=== PATIENT | male | born 2000 | race Caucasian/White ===

== ENCOUNTER 2018-05-27 01:40 | Emergency (ER) | payer MEDICAID, SELFPAY ==
[2018-05-27 01:40] VITALS: BP 111/81; PULSE 98; RESP 20; TEMP 36.7; O2SAT 96; BMI 20.7
[2018-05-27] MEDS: Ondansetron 4 MG/2 ML Vial IV (02:25)
[2018-05-27] MEDS: 0.9% Normal Saline 1,000 ML 1000 ML IV ×2 (02:25→03:20)
[2018-05-27 02:27] LABS: Absolute Lymphocyte Count 1.81 X10^3/ul (0.83-4.51); Absolute Neutrophil Count 2.8 X10^3/uL (2.0-7.7); Basophil# 0.07 X10^3/uL; Basophil% 1.2 % (0-1); Eosinophil# 0.11 X10^3/uL; Eosinophils% 1.9 % (0-5); Hematocrit 40.7 % (40-54); Hemoglobin 14.4 g/dl (13.0-16.5); Lymphocyte # 1.81 X10^3/ul (4.0); Lymphocyte % 31.6 % (19-41); Mean Corp Hgb Conc 35.4 g/gl (32-36); Mean Corpuscular Hgb 30.5 pg (27.0-32.0); Mean Corpuscular Volume 86.2 fL (80-94); Mean Platelet Vol. 9.6 fl (6.2-12.0); Monocyte% 15.7 % (0-10); Neutrophil # 2.82 X10^3/uL (2.7-7.7); Neutrophil % 49.4 % (47-70); Platelet Count 345 K/mm3 (150-450); RBC Distribution Width CV 12.8 % (11.6-14.6); RBC Distribution Width SD 39.9 fl (35.1-43.9); Red Blood Count 4.72 M/mm3 (4.6-6.2); White Blood Count 5.7 K/mm3 (4.4-11.0)
[2018-05-27 02:31] LABS: POSITIVE COUNT NO; POSITIVE DIFFERENTIAL NO; POSITIVE MORPHOLOGY NO
[2018-05-27 02:34] LABS: Anion Gap 6 (5-15); BUN 13 mg/dL (7-18); BUN/Creat Ratio 14.1 RATIO (10-20); Calcium,Total 9.4 mg/dL (8.5-10.1); Chloride 100 mmol/L (98-107); Creatinine, Serum 0.92 mg/dL (0.70-1.30); EST Glomerular Filtration Rate 111 mL/min (>60); Est Glom Filt Rate - Afr Amer 135 mL/min (>60); Glucose 290 mg/dL (74-106); Potassium 3.3 mmol/L (3.5-5.1); Sodium Level 137 mmol/L (136-145)
--- NOTE | 2018-05-27 03:08 | ED.VISSUMM ---
- ER Visit Summary Date of Service: 05/27/18 Chief Complaint: Elevated blood sugar History of Present Illness: The patient is a 17 M history of insulin-dependent diabetes and prior episode of DKA. He states that his insulin has but he is still using it. And his blood sugars have been running between 3 and 400 the last several days. He did have nausea and vomiting ?1 today. Denies any fever. Denies any abdominal or chest pain. No dysuria. Physical Examination: Young male no acute distress. Vital signs are stable. Afebrile. HEENT exam unremarkable. Moist wheeze members. Neck nontender no lymphadenopathy. Lungs clear to auscultation bilaterally. Heart regular rhythm rate about 95 no murmur. Abdomen soft nontender. Normal bowel sounds no peritoneal signs. Moving all 4 extremities. Neurovascularly intact. No edema. Skin no rashes. Neurologically is awake and alert with no focal motor deficits. Test Results: CBC shows a white count of 5. H&H of 14 and 40. Electrolytes unremarkable. Potassium 3.3. Anion gap is 6. Glucose of 290. Normal creatinine. Serum ketones are negative. Emergency Department Course and Treatment: Repeat exam patient is doing well at 03 100. He is received 1 L of fluid and is getting a second. He will be given a very small dose of subcu insulin. And already met prescription for new insulin. Treatment Plan: Patient needs to follow-up with your primary care physician to write him prescriptions. Watch his blood sugars closely. Return if worse. Disposition: Discharge Impression: Acute hyperglycemia with a history of insulin-dependent diabetes. Nausea and vomiting ?1 This note was generated with [employer] dictation software. It may contain incorrect words, spelling, and punctuation that were not noted in review of the chart prior to signing ED Disposition - Plan for ED Patient: Chief Complaint: Hyperglycemia Referrals: Care Physician,No Primary [Primary Care Provider] -
--- NOTE | 2018-05-27 03:11 | ED.DEP ---
ED Disposition - Plan for ED Patient: Disposition: Home or Assisted Living Chief Complaint: Hyperglycemia Instructions: ED Hyperglycemia Diabetic Prescriptions: Insulin Lispro [Humalog Brad Kwikjulissa] 100 unit SQ BID #1 [id number] Referrals: Hiro Carlos MD [STAFF PHYSICIAN] - As soon as possible Jozef Masterson MD [NON-STAFF] - As soon as possible Additional Instructions: Watch her blood sugars very closely. Check your blood sugar the night before you go to sleep. Call and follow-up with 1 of the 2 primary care physicians that I referred you to to get a local physician. Plenty of fluids and rest. Return to ER feeling worse.
[2018-05-27] MEDS: Insulin NPH Human 100 UNITS/ML PEN SC (03:27)
[2018-05-27 03:31] LABS: Bedside Glucose 197 mg/dL (70-110)
[2018-05-27 04:17] VITALS: BP 103/64; PULSE 84; RESP 16; O2SAT 98
== END 2018-05-27 04:18 | disposition home or self-care (01) ==
PROVIDERS: Emergency Provider Emergency Medicine
DX: E11.65 Type 2 diabetes mellitus with hyperglycemia (principal); Z79.4 Long term (current) use of insulin; R11.2 Nausea with vomiting, unspecified; Z72.0 Tobacco use
CPT/HCPCS: 80048; 82009; 82962; 85025; 96361; 96374; 99284; J7030; A4216; J2405

== ENCOUNTER 2018-06-16 07:46 | Emergency (ER) | payer MEDICAID, SELFPAY ==
[2018-06-16 07:47] VITALS: BP 113/72; PULSE 85; RESP 18; TEMP 36.8; O2SAT 99; BMI 21.6
[2018-06-16 08:00] LABS: Bedside Glucose 320 mg/dL (70-110)
--- NOTE | 2018-06-16 08:08 | ED.VISSUMM ---
- ER Visit Summary Date of Service: 06/16/18 Chief Complaint: Neuropathy and elevated blood sugars History of Present Illness: The patient is a 17 M who is a type I diabetic who states that he cannot get his blood sugar down. This is been a problem ongoing for months. He states that he is unsure who his doctor is but he saw them a week ago. States his last hemoglobin A1c was over 13. He states he is unsure of his next appointment. He states that he has had pain in his legs for a long time and today he could not go to work. He states that he does not take anything for the pain in his legs. He notes some nausea. He states the pain was so bad today he could not walk. EMS states that he was able to get down a couple flights of stairs and out of the truck. Physical Examination: Afebrile vital signs are stable Gen: Well-nourished well-developed Head: Normocephalic atraumatic Eyes: Perrl EOMI ENT: TMs clear no rhinorrhea moist mucous membranes Neck: Supple no lymphadenopathy no JVD nontender CVS: Regular rate rhythm no murmurs normal S1-S2 Respiratory: No distress clear to auscultation bilaterally chest nontender Abdomen: Soft nontender nondistended normal bowel sounds no masses Back: Nontender Extremity: The patient states that he has pain upon palpation of the bilateral legs no edema Skin: Normal color no rash Neuro: alert orientated ?3 CN II-XII intact normal strength sensation reflexes gait cerebellar Test Results: [] Emergency Department Course and Treatment: Patient received IV fluids and Toradol. He also received IV insulin. Blood sugar is declining (320 down to 141). The Patient at one point through his urine bottle across the room and anger. He was apparently upset about needing to give a specimen. Patient has been able to ambulate. Reviewed the patient's last note from the [facility] establishing care. I would suspect there is some degree of noncompliance with the patient and he would benefit from diabetic education. I am going to refer him to endocrinology. Impression: 1. Uncontrolled diabetes 2. Bilateral leg pain This note was generated with [employer] dictation software. It may contain incorrect words, spelling, and punctuation that were not noted in review of the chart prior to signing ED Disposition - Plan for ED Patient: Disposition: Home or Assisted Living Chief Complaint: Hyperglycemia Instructions: ED Hyperglycemia Diabetic Referrals: Mirna Atkins, TRIGONOMETRY TUTOR-C [Nurse Practitioner] - As soon as possible
[2018-06-16] MEDS: Insulin Lispro 100 UNIT/ML INSULN.PEN 10 UNIT SC (08:18)
[2018-06-16] MEDS: 0.9% Normal Saline 1,000 ML 1000 ML IV (08:19)
[2018-06-16] MEDS: Ketorolac 15 MG/ML Vial IV (08:22)
[2018-06-16 08:52] LABS: Anion Gap 7 (5-15); BUN 14 mg/dL (7-18); BUN/Creat Ratio 17.7 RATIO (10-20); Calcium,Total 9.1 mg/dL (8.5-10.1); Chloride 102 mmol/L (98-107); Creatinine, Serum 0.79 mg/dL (0.70-1.30); EST Glomerular Filtration Rate 133 mL/min (>60); Est Glom Filt Rate - Afr Amer 161 mL/min (>60); Estimated Creatinine Clearance 149.56 ml/min; Glucose 322 mg/dL (74-106); Potassium 3.7 mmol/L (3.5-5.1); Sodium Level 138 mmol/L (136-145)
[2018-06-16 09:14] LABS: Bacteria 0 SEEN /hpf (None Seen); Mucous, Urine 0 SEEN /hpf (<or=2+); Red Blood Cells-Urine 0 SEEN /hpf (0-5); Squamous Epithelial Cells - UA 0 SEEN /hpf (0-5); White Blood Cells 0 SEEN /hpf (0-5)
[2018-06-16 09:16] LABS: Color, Urine Yellow (Yellow); Glucose, Dipstick 1000 mg/dl (Normal); Ketone-Dipstick Negative (Negative); Leukocyte Esterase-Dipstick Negative /ul (Negative); Nitrite-Dipstick Negative (Negative); Occult Blood-Urine Negative /ul (Negative); Protein-Dipstick Negative (Negative); Specific Gravity, Urine 1.025 (1.002-1.030); Urine Bilirubin Dipstick Negative (Negative); Urine Clarity Sl. Cloudy (Clear); Urine Urobilinogen Normal (Normal)
[2018-06-16 09:26] VITALS: BP 137/85; PULSE 74; RESP 12; O2SAT 100
--- NOTE | 2018-06-16 09:29 | ED.RN ---
pt initially refusing to give urine. pt went to bathroom and states he urinated but did not give sample because he was too busy having a bowel movement. when asked again for urine pt threw cup across room.
[2018-06-16 09:34] LABS: Amphetamine Urine VISTA NEGATIVE (<1000 ng/mL); Barbiturate Urine VISTA NEGATIVE (< 200 ng/mL); Benzodiazepine Urine VISTA NEGATIVE (< 200 ng/mL); Cocaine Urine VISTA NEGATIVE (< 300 ng/mL); Ecstacy Urine VISTA NEGATIVE (< 500 ng/mL); Methadone Urine VISTA NEGATIVE (< 300 ng/mL); PCP Urine VISTA NEGATIVE (< 25 ng/mL); THC Urine VISTA POSITIVE (< 50 ng/mL); Vista UDS pH Range 6
[2018-06-16 09:46] LABS: Bedside Glucose 141 mg/dL (70-110)
[2018-06-16 09:48] VITALS: RESP 14
--- NOTE | 2018-06-16 09:48 | ED.RN ---
PT BELLIGERENT, THROWING SCANNER AND SLAMMING STOOL AROUND IN ED ROOM. STS I'M NEVER COMING BACK TO THIS [facility]. YOU DON'T HELP NOBODY. PT ENCOURAGED TO LEAVE NOW, OR [facility] RESOURCE OFFICER AND SECURITY IS GOING TO BE NOTIFIED.
--- NOTE | 2018-06-16 12:14 | ED.RN ---
Upon discharged, pt was cussing while leaving hospital, saying I will never fucking come back to place and I will manuel you all. Unclear of why pt was upset. Pt states that he was given attitude by staff when confronted about his behavior and him throwing objects across the room. He later returned to visit another pt was while walking to other pts room, private secretary informed him that the dr was in the room and to wait in the waiting room. He walked past the desk, ignoring staff and went into the room anyway. Addressed pt about this and pt yelled don't give me attitude. Informed charge nurse, PD, and security. PD and security went to him and informed him he could not be in the department causing a scene and yelling at people. His family member then asked him to leave the room.
== END 2018-06-16 09:50 | disposition home or self-care (01) ==
PROVIDERS: Emergency Provider Emergency Medicine
DX: E10.65 Type 1 diabetes mellitus with hyperglycemia (principal); Z79.4 Long term (current) use of insulin; M79.605 Pain in left leg; M79.604 Pain in right leg; Z72.0 Tobacco use
CPT/HCPCS: 80048; 80307; 81001; 82009; 82962; 96361; 96372; 96374; 99285; A4216

== ENCOUNTER 2018-07-14 00:46 | Emergency (ER) | payer MEDICAID, SELFPAY ==
[2018-07-14 00:47] VITALS: BP 137/84; PULSE 111; RESP 20; TEMP 36.3; O2SAT 99; BMI 20.7
--- NOTE | 2018-07-14 01:09 | ED.DCSUM_ITS ---
- ER Visit Summary Date of Service: 07/14/18 Chief Complaint: Rash History of Present Illness: The patient is a 17 M presents rash of the chest is using new body wash shampoo yesterday. No lip or tongue swelling. No trouble breathing. No medications taken. Similar symptoms with shellfish allergy. Insulin-dependent diabetic. Physical Examination: General: Alert and oriented ?3, no acute distress HEENT: Normocephalic, atraumatic. Moist mucosa membranes. No lip or tongue swelling. Airway patent. Neck: supple, nontender. Cardiovascular: Regular rate and rhythm, no murmurs Respiratory: Normal breath sounds, symmetric, no distress Abdomen: Soft, nontender, nondistended Extremities: Nontender, no edema, pulses intact ?4 Neuro: no focal neurological deficits. Skin: Patches redness papules anterior chest. Nontender, no vesicles, no drainage. Test Results: [] Emergency Department Course and Treatment: Patient nontoxic no respiratory distress. Exposure new soap yesterday with new rash. Likely allergic dermatitis. Start on Benadryl. Steroids will be held due to his diabetic history. This is localized. He will continue Benadryl as needed. He will stop the new product. Treatment Plan: [] Disposition: Discharge Impression: Allergic dermatitis This note was generated with [employer] dictation software. It may contain incorrect words, spelling, and punctuation that were not noted in review of the chart prior to signing ED Disposition - Plan for ED Patient: Disposition: Home or Assisted Living Chief Complaint: Allergic Reaction Diagnosis: Allergic dermatitis Instructions: ED Allergic Reaction Local Other Prescriptions: DiphenhydrAMINE [Benadryl] 25 mg PO Q6H PRN PRN #20 capsule PRN Reason: Itching Referrals: NOT,DEFINED [Primary Care Provider] - 3-5 Days if not improving
[2018-07-14] MEDS: DiphenhydrAMINE 25 MG Capsule PO (01:20)
[2018-07-14 01:23] VITALS: RESP 18; O2SAT 98
== END 2018-07-14 01:23 | disposition home or self-care (01) ==
LOC: ED 01:14
PROVIDERS: Emergency Provider Emergency Medicine
DX: L23.89 Allergic contact dermatitis due to other agents (principal); E10.9 Type 1 diabetes mellitus without complications; Z79.4 Long term (current) use of insulin; Z72.0 Tobacco use
CPT/HCPCS: 99283